=== PATIENT | female | born 1995 | race Hispanic/Latino ===

== ENCOUNTER 2017-05-28 01:32 | Inpatient (IN) | payer BC, OTHER ==
[2017-05-28 03:29] VITALS: BMI 27.6
--- NOTE | 2017-05-28 03:36 | OBADHP ---
Datetime: 05/28/2017 01:30 Admit Comment, IP Provider: 21yo with IUP at 39.5 reports here today c/o contraction pain and p ressure for 1 day. She denies VB or LOF but feels good movements. Uncomplicated cours e. [place]- Q 2-4 FHR- Category 1, Cx- 2-3cm increased to 3-4/80/-2 after 1 hour observation., Vtx prese ntation Assessment: IUP at 39wks in Active labor. Plan: Admit to LND Monitor the progress of labor. Pelvic Type - PN: Adequate Extremities - PN: Normal Abdomen - PN: Normal Back - PN: Normal Breast - PN: Normal Lungs - PN: Normal Heart - PN: Normal Thyroid - PN: Normal Neurologic - PN: Normal HEENT - PN: Normal General - PN: Normal Presentation-Admit: Vertex FHR - Baseline A Provider: 140 Membranes, Provider: Intact Contraction Comments Provider: Q2-6 Comments, ACOG Physical Exam: Abd: Soft, NT, BS- present Gestation - Est Wks by US: 39.5 IP Chief Complaint: Uterine contractions; Maternal discomfort NICHD Variability Prov Fetus A: Moderate 6-25bpm NICHD Accel Fetus A IP Provider: 15X15 FHR Category Provider Fetus A: Category I NICHD Decel Fetus A IP Provider: None Dilatation, Provider: 2-3 Effacement, Provider: 80 Station, Provider: -3 Genitourinary Exam: Normal DTRs - PN: Normal IP Adm Impression: Term, intrauterine ; Active labor IP Admit Plan: Admit to unit; Initiate labor protocol
[2017-05-28] MEDS ORDERED: Lactated Ringer's 1,000 ML IV SCH (03:45)
[2017-05-28 05:28] LABS: BASO % 0.2 % (0.0-2.0); EOS # 0.1 K/uL (0.0-0.7); EOS % 0.5 % (0.0-4.0); HEMOGLOBIN 13.9 g/dL (11.0-16.0); LYMPH # 1.9 K/uL (1.0-4.3); LYMPH % 10.9 % (20.0-40.0); MEAN CELL VOLUME 83.7 fL (81.0-99.0); MEAN CORPUSCULAR HEMOGLOBIN 28.2 pg (27.0-31.0); MEAN CORPUSCULAR HGB CONC 33.7 g/dL (33.0-37.0); MONO # 1.7 K/uL (0.0-0.8); NEUT # 13.6 K/uL (1.8-7.0); NEUT % 78.4 % (50.0-75.0); RBC 4.92 Mil/uL (3.80-5.20); RED CELL DISTRIBUTION WIDTH 13.5 % (11.5-14.5); WHITE BLOOD COUNT 17.4 K/uL (4.8-10.8)
[2017-05-28 05:41] LABS: SQUAMOUS EPITHIAL 25 /hpf (0-5); URINE BACTERIA RARE (<OCC); URINE BILIRUBIN NEGATIVE (NEGATIVE); URINE BLOOD 2+ (NEGATIVE); URINE CLARITY Hazy (Clear); URINE COLOR Yellow (YELLOW); URINE GLUCOSE (UA) NORMAL (Normal); URINE LEUKOCYTE ESTERASE 2+ Leu/uL (Negative); URINE NITRATE NEGATIVE (NEGATIVE); URINE PROTEIN NEGATIVE (NEGATIVE); URINE UROBILINOGEN NORMAL mg/dL (0.2-1.0)
[2017-05-28 05:47] LABS: ALB/GLOB RATIO 1.1 (1.0-2.1); ALBUMIN 3.9 g/dL (3.5-5.0); ALT/SGPT 20 U/L (9-52); AST/SGOT 28 U/L (14-36); BLOOD UREA NITROGEN 9 mg/dL (7-17); CALCIUM 9.3 mg/dl (8.6-10.4); GFR AFRICAN-AMERICAN > 60; GFR NON-AFRICAN AMERICAN > 60
[2017-05-28] MEDS ORDERED: Fentanyl/Bupivacaine HCl 250 ML EPI ONE (05:54)
[2017-05-28] MEDS ORDERED: Bupivacaine HCl 0.25% PF (10 ml) Inj ONE (05:54)
[2017-05-28 08:35] LABS: BARBITURATES, UR NEGATIVE (NEGATIVE); BENZODIAZEPINES, UR NEGATIVE (NEGATIVE); OPIATES, UR NEGATIVE (NEGATIVE); PHENCYCLIDINE, UR NEGATIVE (NEGATIVE)
[2017-05-28] MEDS ORDERED: Dextrose 5%/Lactated Ringer's 1,000 ML IV SCH (09:00)
[2017-05-28] MEDS ORDERED: Oxytocin 30 UNIT 30 UNITS/500 ML BAG IV SCH (09:45)
[2017-05-28] MEDS ORDERED: Sodium Bicarbonate (8.4%) 50 Meq Syringe ONE (14:39)
--- NOTE | 2017-05-28 14:49 | OBPN ---
Datetime: 05/28/2017 14:40 IP Procedures: Artificial ROM Contraction Comments Provider: every 2-3min IP Progress Note Comment: S-patient comfortable with epidural O-VS 125/81 fht 130S, min-mod shanel, +decel for 5 min with aneesh at 70s.Patient position changed.oxygen given.pi tocin turned off.Patient put in trendelenburg position.FHR back to baseline of 130s FECG and IUPC plcaed SVE 5/100-/-2 A/P patient admitted in labor at 39.5wga .s/p AROM.FHT 2 -will continue to monitor closely -discussed with patient about possibility of need for csection if tracing is not reassuirng.all ri ks associatd with csection discussed with patient Vital Signs Provider: Reviewed FHR Category Provider Fetus A: Category II Dilatation, Provider: 5 Effacement, Provider: 100 Station, Provider: -2 Datetime: 05/28/2017 09:01 IP Progress Impression: Normal progression of labor IP Progress Plan: Continue present management Membranes, Provider: Intact FHR - Baseline A Provider: 130 NICHD Variability Prov Fetus A: Minimal - Undetectable to <5bpm NICHD Decel Fetus A IP Provider: Variable Datetime: 05/28/2017 01:30 Gestation - Est Wks by US: 39.5 Presentation-Admit: Vertex NICHD Accel Fetus A IP Provider: [id number]
[2017-05-28] MEDS ORDERED: Phenylephrine 10 mg/ml Inj ONE (14:51)
[2017-05-28] MEDS ORDERED: ePHEDrine 50 mg/ml Inj ONE (14:51)
[2017-05-28] MEDS ORDERED: Lidocaine 2% Inj (20ml) ONE (16:33)
[2017-05-28] MEDS ORDERED: Oxycodone/Acetaminophen 5/325 mg Tab PO PRN (17:57)
[2017-05-28] MEDS ORDERED: Benzocaine/Menthol 20%-0.5% Topical Spray (60 ml) TOP PRN (17:57)
--- NOTE | 2017-05-28 18:40 | OBDS ---
DELIVERY PERSONNEL Delivery Doctor: Angelina Nguyen MD [employer] Mechanic: Odin Anesthesiologist: Dr Staples Resident: Dr Fajardo MATERNAL INFORMATION Delivery Anesthesia: Epidural Medications in Delivery: pitocin 30 in 500 NS Estimated Blood Loss (ml): 400 Placenta Cultured: Yes Maternal Complications: None RN Comments: liveborn female , 9/9; mother and infant in stable condition, vitals WNL Provider Comments: Patient pushing.median episiotomy done to expedite the delivery secondary tp term inal decel. of a female from [place] position.body and shoulders delivered without difficulty.c ord camped and cut..placenta spontabeously delivered.episiotomy repaired with 2-0 chromic Fundus firm patient and infant stable LABOR SUMMARY EDC: 05/30/2017 00:00 No. Babies in Womb: 1 Attempted: No Labor Anesthesia: Epidural LABOR INFORMATION Onset of Labor: 05/27/2017 23:00 Complete Dilatation: 05/28/2017 16:16 Oxytocin: Augmentation Group B Beta Strep: Negative Steroids Given: None Reason Steroids Not Administered: Not Applicable MEMBRANES Membranes Rupture Method: Artificial Rupture of Membranes: 05/28/2017 14:17 Length of Rupture (hrs): 3.28 Amniotic Fluid Color: Clear Amniotic Fluid Amount: Small Amniotic Fluid Odor: None STAGES OF LABOR Stage 1 hrs: 17 Stage 1 min: 16 Stage 2 hrs: 1 Stage 2 min: 18 Stage 3 hrs: 0 Stage 3 min: 9 Total Time in Labor hrs: 18 Total Time in Labor min: 43 VAGINAL DELIVERY Episiotomy: Median Laceration Repair: Not Applicable Laceration Repair Note: episiotomy repaired with 2-0 chromic Sponge Count Correct: Yes; Vaginal Sweep Performed Sharps Count Correct: Yes BABY A INFORMATION Infant Delivery Date/Time: 05/28/2017 17:34 Method of Delivery: Vaginal Born in Route : No : N/A Forceps: N/A Vacuum Extraction: N/A Shoulder Dystocia : No SHOULDER DYSTOCIA BABY A Infant Delivery Date/Time: 05/28/2017 17:34 PRESENTATION/POSITION BABY A Presentation: Cephalic Cephalic Presentation: Vertex Vertex Position: Left Occipital Anterior Breech Presentation: N/A PLACENTA INFORMATION BABY A Placenta Delivery Time : 05/28/2017 17:43 Placenta Method of Delivery: Expressed Placenta Status: Delivered SCORES BABY A Heart Rate 1 min: >100 bpm Resp Effort 1 min: Good Cry Reflex Irritability 1 min: Cough or Sneeze or Pulls Away Muscle Tone 1 min: Active Motion Color 1 min: Body [place], Extremities Blue Resuscitation Effort 1 min: Tactile Stimulation SCORE 1 MIN: 9 Heart Rate 5 min: >100 bpm Resp Effort 5 min: Good Cry Reflex Irritability 5 min: Cough or Sneeze or Pulls Away Muscle Tone 5 min: Active Motion Color 5 min: Body [place], Extremities Blue Resuscitation Effort 5 min: N/A SCORE 5 MIN: 9 INFANT INFORMATION BABY A Gestational Age at Delivery: 39.5 Gestational Status: Term Outcome : Liveborn Condition : Stable Infant Sex: Female IDENTIFICATION/MEDS BABY A ID Band Number: [id number] Sensor Number: [id number] WEIGHT/LENGTH BABY A Infant Birthweight (gms): 2700 Infant Weight (lb): 5 Weight (oz): 15 Infant Length Inches: 18.25 Infant Length cms: 46.4 CORD INFORMATION BABY A No. Cord Vessels: 3 Nuchal Cord : N/A Cord Blood Taken: Yes Infant Suction: Mouth; Nose ASSESSMENT BABY A Complications: None Physical Findings at Delivery: [place] Infant Respirations: Appears Normal Logging Superintendent/ALS Called : No Care By: Puneet Mock RN Transferred To: Remains with Mother
[2017-05-29 08:00] VITALS: RESP 18
[2017-05-29 08:51] LABS: BASO % 0.3 % (0.0-2.0); EOS # 0.3 K/uL (0.0-0.7); EOS % 1.5 % (0.0-4.0); LYMPH # 1.8 K/uL (1.0-4.3); LYMPH % 9.9 % (20.0-40.0); MEAN CELL VOLUME 84.1 fL (81.0-99.0); MEAN CORPUSCULAR HEMOGLOBIN 27.9 pg (27.0-31.0); MEAN CORPUSCULAR HGB CONC 33.1 g/dL (33.0-37.0); MEAN PLATELET VOLUME 9.4 fL (7.2-11.7); MONO # 1.9 K/uL (0.0-0.8); MONO % 10.5 % (0.0-10.0); NEUT # 14.2 K/uL (1.8-7.0); NEUT % 77.8 % (50.0-75.0); PLATELET COUNT 177 K/uL (130-400); RBC 4.09 Mil/uL (3.80-5.20); RED CELL DISTRIBUTION WIDTH 13.4 % (11.5-14.5); WHITE BLOOD COUNT 18.2 K/uL (4.8-10.8)
[2017-05-29 09:03] LABS: HEMOGLOBIN 11.4 g/dL (11.0-16.0)
[2017-05-29 09:29] LABS: ANISOCYTOSIS SLIGHT; BANDS 3 % (0-2); EOSINOPHIL 2 % (0-4); HYPOCHROMIC SLIGHT; LYMPHOCYTE 10 % (20-40); MONOCYTE 12 % (0-10); NEUTROPHIL 73 % (50-75); PLATELET ESTIMATE NORMAL (NORMAL); POIKILOCYTOSIS SLIGHT; TOTAL CELLS COUNTED 100
--- NOTE | 2017-05-29 13:13 | OBPPN ---
Datetime: 05/29/2017 07:55 PP Pain Prov: Within normal limits PP Nausea Prov: Denies PP Flatus Prov: Yes PP BM Prov: No PP Breasts Prov: Normal PP Heart Prov: Normal PP Lungs Prov: Normal PP Abdomen/Uterus Prov: Normal PP Lochia Prov: Normal PP Extremities Prov: Normal PP Progress Prov: Normal PP Impression Prov: Normal progression PP Plan Prov: Continue present management PP Progress Note Prov: Patient seen and examined at bedside. Per nursing no acute events overnight. Patient is doing well, reports having some cramp like pain. Pain scale 5/10. Lochia is moderate. Ambu lating and tolerating diet. Passing flatus, denies BM. Urinating without difficulty. Breast and bottl e feeding. Denies headaches, dizziness, cp, palpitations, sob, urinary symptoms. VS: BP 107/67 HR 85 Temp 97.5 Gen: AAOx3 CV: RRR Lungs: CTA B/L Abd: Soft, fundus firm 1 fingerbreath above umbilicus Ext: No clubbing, cyanosis, edema; no calf tenderness Labs: 17.4>13.9/41.2<232 F/U am CBC O positive Rubella immune A/P: 21 year old at 39w5d s/p w median episiotomy PPD#1 -Stable, afebrile -Pain control: Motrin prn -F/U AM CBC -Encourage ambulation and hydration -Encourage breast feeding -Continue routine care -Plan discussed with Dr. Hernando Hathaway DO PGY-1 obh addendum: pt seen _ exmined by me. agree w/ above assessment and plan. p: sitz baths and perineal care d/w pt. IP PP Procedures: None Vital Signs Provider PP: Reviewed; Within Normal Limits
[2017-05-30 07:16] LABS: BASO # 0.1 K/uL (0.0-0.2); BASO % 0.4 % (0.0-2.0); EOS # 0.4 K/uL (0.0-0.7); EOS % 2.5 % (0.0-4.0); HEMOGLOBIN 11.1 g/dL (11.0-16.0); LYMPH # 1.9 K/uL (1.0-4.3); LYMPH % 13.4 % (20.0-40.0); MEAN CELL VOLUME 84.5 fL (81.0-99.0); MEAN CORPUSCULAR HEMOGLOBIN 28.6 pg (27.0-31.0); MEAN CORPUSCULAR HGB CONC 33.9 g/dL (33.0-37.0); MEAN PLATELET VOLUME 9.3 fL (7.2-11.7); MONO # 1.4 K/uL (0.0-0.8); MONO % 9.9 % (0.0-10.0); NEUT # 10.7 K/uL (1.8-7.0); NEUT % 73.8 % (50.0-75.0); RBC 3.87 Mil/uL (3.80-5.20); RED CELL DISTRIBUTION WIDTH 13.7 % (11.5-14.5); WHITE BLOOD COUNT 14.4 K/uL (4.8-10.8)
[2017-05-30 07:36] VITALS: BP 107/67; PULSE 82; TEMP 97; O2SAT 98
--- NOTE | 2017-05-30 17:42 | OBPPN ---
Datetime: 05/30/2017 07:31 PP Pain Prov: Within normal limits PP Nausea Prov: Denies PP Flatus Prov: Yes PP BM Prov: Yes PP Heart Prov: Normal PP Lungs Prov: Normal PP Abdomen/Uterus Prov: Normal PP Lochia Prov: Normal PP Vulva/Perineum Prov: Normal PP Extremities Prov: Normal PP C/S Incision Prov: Not Applicable PP Progress Prov: Normal PP Impression Prov: Normal progression PP Plan Prov: Continue present management; Discharge PP Progress Note Prov: Patient seen and examined at bedside. Per nursing no acute events overnight. Patient is doing well, having occasional cramplike pain. Lochia is moderate and decreasing. Ambulatin g and tolerating diet. Urinating without difficulty, passing flatus and BM. Breast and bottle feeding . Denies headaches, dizziness, cp, palpitations, sob, urinary symptoms. VS: 124/87 76 97.8 Gen: AAOx3 Abd: Soft, fundus firm above umbilicus Ext: No clubbing, cyanosis, edema; no calf tenderness Labs: 17.4>13.9/41.2<232 18.2>11.4/34.4<177 14.4>11.1/32.7<181 O positive Rubella immune A/P: 21 year old at 39w5d s/p with median episiotomy PPD#2 -Stable, afebrile -Pain control as needed -Encourage ambulation and hydration -Encourage -Continue routine care -Anticipate discharge home -Discussed with attending Herlinda Hathaway DO PGY-1 patient examined.agree with residen exam, assessment and plan Vital Signs Provider PP: Reviewed; Within Normal Limits
--- NOTE | 2017-05-30 17:42 | OBDCSUM ---
Datetime: 05/29/2017 12:53 Follow up at, Provider: Dr. Messina Disch Instr Diet: Regular Discharge Time: 05/30/2017 09:17 Follow up in weeks, Provider: 6 weeks Disch Referrals: None
== END 2017-05-30 12:00 | disposition home or self-care (01) | DRG 373 ==
LOC: C.EROB 01:32 → UNDOADMIN 03:33 → C.4D 03:33 → C.4M 20:07 → C.4D 20:07 → C.4M 20:33 → C.4D 20:33
PROVIDERS: ADMIT Obstetrics & Gynecology; ATTEND Obstetrics & Gynecology
PROC: 10E0XZZ Delivery of Products of Conception, External Approach (ICD-10-PCS; principal; 2017-05-28)
PROC: 0W8NXZZ Division of Female Perineum, External Approach (ICD-10-PCS; 2017-05-28)
PROC: 10907ZC Drainage of Amniotic Fluid, Therapeutic from Products of Conception, Via Natural or Artificial Opening (ICD-10-PCS; 2017-05-28)
DX: O76 Abnormality in fetal heart rate and rhythm complicating labor and delivery (principal); Z37.0 Single live birth; Z3A.39 39 weeks gestation of pregnancy